=== PATIENT | male | born 1955 | race Caucasian/White ===

== ENCOUNTER → 2016-08-21 | Outpatient (CLI) | payer BC ==
[2016-08-22 10:58] LABS: PROSTATE SPECIFIC ANTIGEN 2.1 ng/mL (0.0-4.0); PSA % FREE 36.2 % (.); PSA FREE 0.76 ng/mL
== END ==
LOC: OD 07:13
PROVIDERS: ATTEND Urology
DX: Z80.42 Family history of malignant neoplasm of prostate (principal)
CPT/HCPCS: 36415; 84154

== ENCOUNTER → 2017-08-21 | Outpatient (CLI) | payer BC ==
[2017-08-23 13:49] LABS: PROSTATE SPECIFIC ANTIGEN 1.7 ng/mL (0.0-4.0); PSA % FREE 39.4 % (.); PSA FREE 0.67 ng/mL
== END ==
LOC: OD 08:30
PROVIDERS: ATTEND Urology
DX: Z80.42 Family history of malignant neoplasm of prostate (principal)
CPT/HCPCS: 36415; 84154